=== PATIENT | male | born 1965 | race Caucasian/White ===

== ENCOUNTER 2021-04-13 15:53 | Emergency (ER) | payer SELFPAY ==
[~2021-04-13] VITALS: Ht 165.1 cm; Wt 78.0 kg
[2021-04-13] MEDS ORDERED: MORPHINE SULFATE 4 MG/ML CPJ (NOT FOR IM USE) IV ONE ×2 (19:15→21:00)
[2021-04-13 20:44] LABS: BASOPHILS % 0.3 % (0.0-2.0); EOSINOPHILS % 0.2 % (0.0-5.0); HEMATOCRIT. 45.1 % (42.0-52.0); HEMOGLOBIN. 15.6 g/dL (14.0-18.0); LYMPHOCYTES % 7.8 % (20.0-50.0); MEAN CORPUSCULAR HEMOGLOBIN 31.9 pg (28.0-32.0); MEAN CORPUSCULAR VOLUME 92.3 fL (80.0-94.0); MEAN PLATELET VOLUME 8.4 fl (7.4-10.4); MONOCYTES % 4.5 % (2.0-8.0); NEUTROPHILS % 87.2 % (40.0-76.0); PLATELET 300 x1000/uL (130-400); RED BLOOD CELL COUNT 4.88 mill/uL (4.7-6.1); RED CELL DISTRIBUTION WIDTH 14.8 % (11.6-14.6)
[2021-04-13 20:47] LABS: CHLORIDE 103 mEq/L (98-107)
[2021-04-13] MEDS ORDERED: LIDOCAINE HCL 1% 20ML VIAL (Pyxis) INJ INFIL ONE (21:00)
[2021-04-13] MEDS ORDERED: HYDR-4346 MT (23:02)
[2021-04-13] MEDS ORDERED: IBUP-2029 MT (23:02)
[2021-04-13] MEDS ORDERED: HYDROCODONE/ACETAMINOPHEN 5/325MG TABLET PO ONE (23:30)
[2021-04-14] MEDS ORDERED: IOHEXOL-300 100 ML BOTTLE ONE (00:12)
[2021-04-14 00:30] VITALS: BP 134/80
== END 2021-04-14 00:30 | disposition home or self-care (01) ==
LOC: ER 15:53
DX: S62.102A Fracture of unspecified carpal bone, left wrist, initial encounter for closed fracture (principal); W18.30XA Fall on same level, unspecified, initial encounter; Y93.89 Activity, other specified; Y92.89 Other specified places as the place of occurrence of the external cause; Y99.8 Other external cause status
CPT/HCPCS: 25605; 36415; 70450; 71101; 73030; 73090; 73110; 73130; 74177; 80053; 85025; 96374; 96376; 99285; J2270; J3490; Q9967; A4565